=== PATIENT | female | born 1955 ===

== ENCOUNTER 2017-12-05 12:37 | Emergency (ER) | payer OTHER, MEDICAID ==
[2017-12-05 13:03] VITALS: RESP 18; TEMP 98.9; O2SAT 98; BMI 30.9
--- NOTE | 2017-12-05 13:19 | ED PDOC ---
Arrival/HPI - General Chief Complaint: ENT Problem Time Seen by Provider: 12/05/17 12:56 Historian: Patient, Spouse - History of Present Illness Time/Duration: Other (4 days) Symptom Onset: Gradual Symptom Course: Worsening Quality: Aching Severity Level: Moderate Activities at Onset: Rest Associated Symptoms (Text): 12/05/17 13:17 Patient complains of a four-day history of a sore throat laryngitis hoarse voice fever to 101 with a cough productive of white sputum. She was seen in the clinic yesterday and given Tessalon, but is no better. No chest pain. No abdominal pain nausea or vomiting. Past Medical History - Infectious Disease Hx of Infectious Diseases: None - Cardiac Hx Hypertension: Yes - Pulmonary Hx Respiratory Disorders: No - Neurological Hx Parkinson's Disease: Yes Hx Transient Ischemic Attacks (TIA): Yes - HEENT Hx HEENT Disorder: Yes Hx Cataracts: Yes (BILAT.) - Renal Hx Renal Disorder: No - Endocrine/Metabolic Hx Endocrine Disorders: No - Hematological/Oncological Hx Blood Disorders: No - Integumentary Hx Dermatological Disorder: No - Musculoskeletal/Rheumatological Hx Herniated Disk: Yes (cervical disc) - Gastrointestinal Hx Gastrointestinal Disorders: No - Genitourinary/Gynecological Hx Genitourinary Disorders: No - Psychiatric Hx Anxiety: Yes Hx Depression: Yes Hx Substance Use: No - Surgical History Hx Hysterectomy: Yes (STEPHEN) Hx Musculoskeletal Surgery: Yes - Anesthesia Hx Anesthesia: Yes Hx Anesthesia Reactions: Yes (Vomiting) Hx Malignant Hyperthermia: No - Suicidal Assessment Feels Threatened In Home Enviroment: No Family/Social History - Physician Review Nursing Documentation Reviewed: Yes Family/Social History: Unknown Family HX Smoking Status: Never Smoked Hx Alcohol Use: No Hx Substance Use: No Allergies/Home Meds Allergies/Adverse Reactions: Allergies codeine Allergy (Intermediate, Verified 02/09/16 10:16) VOMITING acetaminophen [From Percocet] Allergy (Verified 05/06/17 06:48) oxycodone [From Percocet] Allergy (Verified 05/06/17 06:48) Home Medications: Home Meds Medication Instructions Recorded Confirmed Alprazolam 0.5 mg PO BID 05/06/17 05/06/17 Carbidopa/Levodopa 1 each PO TID 05/06/17 05/06/17 [Carbidopa-Levodopa 25-100 Tab] Ergocalciferol (Vitamin D2) 50,000 unit PO QWK 05/06/17 05/06/17 [Vitamin D2] Selegiline [Eldepryl] 5 mg PO BID 05/06/17 05/06/17 Review of Systems - Physician Review All systems were reviewed & negative as marked: Yes - Review of Systems Constitutional: Fatigue, Fevers Respiratory: Cough, Sputum. absent: SOB, Wheezing Cardiovascular: absent: Chest Pain, Palpitations, Syncope Gastrointestinal: absent: Abdominal Pain, Nausea, Vomiting Neurological: Headache. absent: Dizziness, Focal Weakness, Gait Changes Physical Exam Vital Signs Temp Pulse Resp BP Pulse Ox 12/05/17 13:03 98.9 F 90 18 124/70 98 12/05/17 13:02 98.3 F 87 17 130/86 97 Temperature: Afebrile Blood Pressure: Normal Pulse: Regular Respiratory Rate: Normal Appearance: Positive for: Well-Appearing, Non-Toxic, Comfortable, Other (Hoarse soft voice) Pain Distress: None Mental Status: Positive for: Alert and Oriented X 3 - Systems Exam Head: Present: Atraumatic, Normocephalic Pupils: Present: PERRL Extroacular Muscles: Present: EOMI Conjunctiva: Present: Normal Ears: Present: NORMAL TM, Normal Canal. No: Erythema, TM Bulging Mouth: Present: Moist Mucous Membranes Pharnyx: No: ERYTHEMA, EXUDATE, TONSILS ENLARGED Neck: No: Meningeal Signs, MIDLINE TENDERNESS, Paraspinal Tenderness, Lymphadenopathy Respiratory/Chest: Present: Clear to Auscultation, Good Air Exchange. No: Respiratory Distress, Accessory Muscle Use Cardiovascular: Present: Regular Rate and Rhythm, Normal S1, S2. No: Murmurs Neurological: Present: GCS=15, CN II-XII Intact, Speech Normal, Motor Func Grossly Intact Skin: Present: Warm, Dry, Normal Color. No: Rashes Psychiatric: Present: Alert, Oriented x 3, Normal Insight, Normal Concentration Medical Decision Making ED Course and Treatment: 12/05/17 14:03 Both rapid strep and influenza A and B are negative. Probable viral syndrome. She does not need antibiotics. Symptomatic treatment. Continue the Tessalon she was prescribed yesterday. Disposition/Present on Arrival - Present on Arrival Any Indicators Present on Arrival: No History of DVT/PE: No History of Uncontrolled Diabetes: No Urinary Catheter: No History of Decub. Ulcer: No History Surgical Site Infection Following: None - Disposition Have Diagnosis and Disposition been Completed?: Yes Diagnosis: Bronchitis, Viral syndrome, Influenza-like illness, Pharyngitis Disposition: HOME/ ROUTINE Disposition Time: 14:04 Patient Plan: Discharge Condition: GOOD Discharge Instructions (ExitCare): Viral Pharyngitis, Sore Throat in Adults, Acute Bronchitis, Laryngitis Additional Instructions: Symptomatic treatment. Tylenol or Advil as directed on bottle as needed. Cepacol or Cepastat as directed on bottle as needed. Continue Tessalon as needed. Follow-up with PMD. Follow up in ER as needed. Forms: [email or web address] ([place])
[2017-12-05 14:02] LABS: INFLUENZA A B NEGATIVE FOR FLU A/B (NEGATIVE)
[2017-12-05 14:54] VITALS: BP 140/88; PULSE 78
--- NOTE | 2017-12-06 08:55 | CARD ---
APPROVED REPORT Date of service: 12/05/2017 EKG Measurement Heart [id number] <Conclusion> Normal sinus rhythm NSSTW changes
== END 2017-12-05 14:45 | disposition home or self-care (01) ==
LOC: ED 12:37
DX: J40 Bronchitis, not specified as acute or chronic (principal); J11.1 Influenza due to unidentified influenza virus with other respiratory manifestations; B34.9 Viral infection, unspecified; I10 Essential (primary) hypertension; G20 Parkinson's disease; Z86.73 Personal history of transient ischemic attack (TIA), and cerebral infarction without residual deficits